=== PATIENT | female | born 1985 | race Caucasian/White ===

== ENCOUNTER 2020-10-26 06:42 | Emergency (ER) | payer BC ==
--- NOTE | 2020-10-26 07:45 | XRay Report ---
LEFT ANKLE 3 VIEWS INDICATION: Left ankle swelling, fell getting off a bus. COMPARISON: None. IMPRESSION: There is moderate to severe lateral soft tissue swelling. Bone mineralization is normal . No acute osseous injury or significant joint pathology is detected. Moderate plantar spur is noted. Signer Name: Nicholas Marrufo Jr, MD Signed: 10/26/2020 7:41 AM Workstation Name: [id number]
--- NOTE | 2020-10-26 09:35 | Emergency Department Report ---
ED Extremity Problem HPI - General Chief complaint: Extremity Injury, Lower Stated complaint: SWOLLEN SPRAINED ANKLE Time Seen by Provider: 10/26/20 09:25 Source: patient Mode of arrival: Wheelchair Limitations: No Limitations - History of Present Illness Initial comments: This is a 35-year-old female with no prior medical history known to me who presents to the ED complaining of left ankle pain and swelling status post injury that happened yesterday. 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 Patient denies any falls or injuries to the head or neck at that time. Patient was able to stand for pain. Patient states that she applied some ice to the ankle thinking she can nurse it back but the pain got worse and got more difficult to put pressure on the left heel. Patient does notes that icing relieves some of the pain but not at all. Patient rates the pain at 10 with Walking. MD Complaint: extremity pain, extremity swelling, joint swelling -: Last night Location: left History of Same: No -: Yes arthralgia Severity scale (0 -10): 10 Quality: stabbing, aching Improves with: cold therapy, immobilization Worsens with: weight bearing, walking Associated Symptoms: denies: chest pain, shortness of breath - Related Data Previous Rx's Medication Instructions Recorded Last Taken Type Ibuprofen [Motrin 800 MG tab] 800 mg PO TID #40 tablet 10/26/20 Unknown Rx methOCARBAMOL [Robaxin TAB] 500 mg PO BID #20 tab 10/26/20 Unknown Rx Allergies Allergy/AdvReac Type Severity Reaction Status Date / Time No Known Allergies Allergy Unverified 10/26/20 06:53 ED Review of Systems ROS: Stated complaint: SWOLLEN SPRAINED ANKLE Other details as noted in HPI Comment: All other systems reviewed and negative ED Past Medical Hx - Past Medical History Previous Medical History?: No - Surgical History Past Surgical History?: No - Social History Smoking Status: Current Every Day Smoker Substance Use Type: Alcohol - Medications Home Medications: Home Medications Medication Instructions Recorded Confirmed Last Taken Type Ibuprofen [Motrin 800 MG tab] 800 mg PO TID #40 tablet 10/26/20 Unknown Rx methOCARBAMOL [Robaxin TAB] 500 mg PO BID #20 tab 10/26/20 Unknown Rx ED Physical Exam - General Limitations: No Limitations General appearance: alert, in no apparent distress - Head Head exam: Present: atraumatic, normocephalic - Eye Eye exam: Present: normal appearance - ENT ENT exam: Present: mucous membranes moist - Neck Neck exam: Present: normal inspection - Respiratory Respiratory exam: Present: normal lung sounds bilaterally. Absent: respiratory distress - Cardiovascular Cardiovascular Exam: Present: regular rate, normal rhythm. Absent: systolic murmur, diastolic murmur, rubs, gallop - GI/Abdominal GI/Abdominal exam: Present: soft, normal bowel sounds - Extremities Exam Extremities exam: Present: normal inspection, full ROM, joint swelling, other (pedal pulses present bilaterally) - Expanded Lower Extremity Exam Left Hip exam: Present: full ROM, tenderness Upper Leg exam: Present: normal inspection, full ROM Knee exam: Present: normal inspection, full ROM. Absent: tenderness Lower Leg exam: Present: normal inspection. Absent: tenderness, swelling Ankle exam: Present: tenderness, swelling, ecchymosis. Absent: full ROM Foot/Toe exam: Present: normal inspection, full ROM. Absent: tenderness, swelling, abrasion Neuro vascular tendon exam: Present: no vascular compromise Gait: Positive: observed and limited by pain - Back Exam Back exam: Present: normal inspection, full ROM - Neurological Exam Neurological exam: Present: alert, oriented X3 - Psychiatric Psychiatric exam: Present: normal affect, normal mood - Skin Skin exam: Present: warm, dry, intact, normal color. Absent: rash ED Course Vital Signs 10/26/20 10/26/20 06:53 11:10 Temperature 98.5 F Pulse Rate 93 H Respiratory 18 Rate Blood Pressure 142/89 138/81 [Right] ED Medical Decision Making - Radiology Data Radiology results: report reviewed, image reviewed Fluoro Time In Minutes: LEFT ANKLE 3 VIEWS INDICATION: Left ankle swelling, fell getting off a bus. COMPARISON: None. IMPRESSION: There is moderate to severe lateral soft tissue swelling. Bone mineralization is normal. No acute osseous injury or significant joint pathology is detected. Moderate plantar spur is noted. Signer Name: Nicholas Rivero Jr, MD Signed: 10/26/2020 7:41 AM Workstation Name: [id number] Transcribed By: TTR Dictated By: NICHOLAS RIVERO JR, MD Electronically Authenticated By: NICHOLAS RIVERO JR, MD Signed Date/Time: 10/26/20 0741 - Medical Decision Making This 35-year-old female presents to ED with left ankle sprain. Patient ankle was placed on ice throughout ED stay. Hudson wrap and foot postop shoe given to patient. Discussed rice protocol. Patient is able to ambulate with a some pain. Discussed x-ray results with the patient. There is no fracture or dislocation noted. Discussed follow-up with primary care physician within a week. Patient understand instructions and will follow-up. Critical care attestation.: If time is entered above; I have spent that time in minutes in the direct care of this critically ill patient, excluding procedure time. ED Disposition Clinical Impression: Left ankle sprain Disposition: - TO HOME OR SELFCARE Is pt being admited?: No Does the pt Need Aspirin: No Condition: Stable Instructions: How to Use Cold Therapy, [id number], Ankle Sprain, [id number] Additional Instructions: Make sure to follow up with the primary care physician as discussed. Take all your medications as you've been prescribed. If you have any worsening symptoms or develop new symptoms please return to ED immediately. Prescriptions: Ibuprofen [Motrin 800 MG tab] 800 mg PO TID #40 tablet methOCARBAMOL [Robaxin TAB] 500 mg PO BID #20 tab Referrals: PRIMARY CARE, [Primary Care Provider] - 3-5 Days [facility] [Outside] - 3-5 Days [facility] [Outside] - 3-5 Days Forms: Work/School Release Form(ED) Time of Disposition: 10:21
[2020-10-26] MEDS ORDERED: IBUPROFEN 800 MG TAB PO ONE (09:36)
[2020-10-26] MEDS ORDERED: ACETAMINOPHEN W/CODEINE 300-30 MG TAB PO ONE (09:36)
[2020-10-26 11:11] VITALS: BP 138/81
== END 2020-10-26 11:11 | disposition home or self-care (01) ==
LOC: ED 06:42
DX: S93.402A Sprain of unspecified ligament of left ankle, initial encounter (principal); F17.200 Nicotine dependence, unspecified, uncomplicated; Z79.1 Long term (current) use of non-steroidal anti-inflammatories (NSAID); Z79.899 Other long term (current) drug therapy; X58.XXXA Exposure to other specified factors, initial encounter; Y93.89 Activity, other specified; Y92.89 Other specified places as the place of occurrence of the external cause; Y99.8 Other external cause status
CPT/HCPCS: 99284